=== PATIENT | male | born 1965 | race Hispanic/Latino ===

== ENCOUNTER 2018-07-03 08:00 | Outpatient (AMBR) | payer OTHER, SELFPAY ==
--- NOTE | 2018-06-11 11:23 | PT.ODAYNRPT ---
PT Outpatient Daily Note Date of Service: June 11, 2018 OP Daily Note Visit Reasons: right knee Outpatient Physical Therapy Treatment Date: 06/11/18 Subjective: Pt mention that his knee feels stiff since the cold weather. Pt sees the surgeon in a few weeks. Objective: Please see flow chart for list of ther ex performed Assessment: tolerate exercises; decrease Hs tightness after stretching. Pt continues to exhibit knee extension lag Plan: Continue with PT Length of Time (minutes) of Treatment: 30 Minutes Office Procedures PT Procedures PT Date of Service: 06/11/18 Therapeutic Exercise 30 minutes: Yes
--- NOTE | 2018-06-16 10:48 | PT.ODAYNRPT ---
PT Outpatient Daily Note Date of Service: June 16, 2018 OP Daily Note Visit Reasons: right knee Outpatient Physical Therapy Treatment Date: 06/16/18 Subjective: Pt's knee feels stiff. Pt mention that it's been really cold lately. Objective: Please see flow chart for list of ther ex performed Assessment: tolerate exercises with minimal pain. still exhibit knee extension lag. Plan: Continue with PT Length of Time (minutes) of Treatment: 45 Minutes Office Procedures PT Procedures PT Date of Service: 06/11/18 Therapeutic Exercise 30 minutes: Yes PT Procedures PT Date of Service: 06/16/18 Therapeutic Exercise 45 minutes: Yes
--- NOTE | 2018-06-18 11:28 | PT.ODAYNRPT ---
PT Outpatient Daily Note Date of Service: June 18, 2018 OP Daily Note Visit Reasons: right knee Outpatient Physical Therapy Treatment Date: 06/18/18 Subjective: Pt mention that his knee is very stiff. Pt change his daugther's tire on saturday and did more than he normally does on a daily basis. Pt lay in bed all day yester day. Objective: Please see flow chart for list of ther ex performed Assessment: no resistance added today with minimal exercises more stretching done due to patient feeling sore and pain at the beginning of PT session. Pt tolerate stretches and session well. Plan: Continue with PT Length of Time (minutes) of Treatment: 30 Minutes Office Procedures PT Procedures PT Date of Service: 06/11/18 Therapeutic Exercise 30 minutes: Yes PT Procedures PT Date of Service: 06/16/18 Therapeutic Exercise 45 minutes: Yes PT Procedures PT Date of Service: 06/18/18 Therapeutic Exercise 30 minutes: Yes
--- NOTE | 2018-06-23 10:45 | PT.ODAYNRPT ---
PT Outpatient Daily Note Date of Service: June 23, 2018 OP Daily Note Visit Reasons: right knee Outpatient Physical Therapy Treatment Date: 06/23/18 Subjective: Pt's knee is hurting more. Pt stated that he still has difficulty walking for a long period of time due to stiffness within the knee. Objective: Please see flow chart for list of ther ex performed Assessment: still exhibit lag with minimal improvement. Pt is limping more due to knee pain and stiffness Plan: Continue with PT Length of Time (minutes) of Treatment: 45 Minutes Office Procedures PT Procedures PT Date of Service: 06/11/18 Therapeutic Exercise 30 minutes: Yes PT Procedures PT Date of Service: 06/16/18 Therapeutic Exercise 45 minutes: Yes PT Procedures PT Date of Service: 06/18/18 Therapeutic Exercise 30 minutes: Yes PT Procedures PT Date of Service: 06/23/18 Therapeutic Exercise 45 minutes: Yes
--- NOTE | 2018-06-26 10:41 | PT.ODAYNRPT ---
PT Outpatient Daily Note Date of Service: June 26, 2018 OP Daily Note Visit Reasons: right knee Outpatient Physical Therapy Treatment Date: 06/26/18 Subjective: Pt saw surgeon and will like him to continue to work on getting his knee straight. Pt still has knee pain in the front. Pt's surgeon plans to order more PT Objective: Please see flow chart for list of ther ex perfromed Assessment: tolerate exercises with minimal pain Plan: Continue with PT Length of Time (minutes) of Treatment: 45 Minutes Office Procedures PT Procedures PT Date of Service: 06/11/18 Therapeutic Exercise 30 minutes: Yes PT Procedures PT Date of Service: 06/16/18 Therapeutic Exercise 45 minutes: Yes PT Procedures PT Date of Service: 06/18/18 Therapeutic Exercise 30 minutes: Yes PT Procedures PT Date of Service: 06/23/18 Therapeutic Exercise 45 minutes: Yes PT Procedures PT Date of Service: 06/26/18 Therapeutic Exercise 45 minutes: Yes
--- NOTE | 2018-07-03 08:48 | PT.ODAYNRPT ---
PT Outpatient Daily Note Date of Service: July 03, 2018 OP Daily Note Visit Reasons: right knee Outpatient Physical Therapy Treatment Date: 07/03/18 Subjective: Pt's knee feels stiff. Pt still has difficulty with walking when it is cold. Objective: Please see flow chart for list of ther ex performed Assessment: tolerate exercises with minimal pain Plan: Continue with PT Length of Time (minutes) of Treatment: 45 Minutes Office Procedures PT Procedures PT Date of Service: 06/11/18 Therapeutic Exercise 30 minutes: Yes PT Procedures PT Date of Service: 06/16/18 Therapeutic Exercise 45 minutes: Yes PT Procedures PT Date of Service: 06/18/18 Therapeutic Exercise 30 minutes: Yes PT Procedures PT Date of Service: 06/23/18 Therapeutic Exercise 45 minutes: Yes PT Procedures PT Date of Service: 07/03/18 Therapeutic Exercise 45 minutes: Yes PT Procedures PT Date of Service: 06/26/18 Therapeutic Exercise 45 minutes: Yes
== END 2018-07-07 23:59 | disposition home or self-care (01) ==
PROVIDERS: PCP Family Medicine; Referring Provider Family Medicine; Visit Provider Orthopaedic Surgery
DX: Z47.1 Aftercare following joint replacement surgery (principal); M25.661 Stiffness of right knee, not elsewhere classified; M25.561 Pain in right knee; R26.2 Difficulty in walking, not elsewhere classified; Z96.651 Presence of right artificial knee joint
CPT/HCPCS: 97110